=== PATIENT | female | born 1990 | race Caucasian/White ===

== ENCOUNTER 2019-02-14 00:56 | Emergency (ER) | payer OTHER, MEDICAID ==
[2019-02-14] MEDS: Promethazine 25 MG/ML SDV IM ONE (01:22)
--- NOTE | 2019-02-14 01:22 | EDM.PDOC ---
ED HPI GENERAL MEDICAL PROBLEM - General Chief Complaint: Abdominal Pain Stated Complaint: ADB PAIN Time Seen by Provider: 02/14/19 01:00 Source of Information: Reports: Patient History Limitations: Reports: No Limitations - History of Present Illness INITIAL COMMENTS - FREE TEXT/NARRATIVE: 28-year-old female with ongoing abdominal pain for the past month. It has been all over her abdomen. She was seen 2 weeks ago and had a pelvic ultrasound and was found to have a left ovarian cyst and she has been referred to see a manipulator operator in regard to this. She has had problems with ovarian cysts in the past and abdominal pain related to that. She tells me she pretty much has pain every day but it seems to be worse at times and it was worse today. The pain is basically all over her abdomen and it seems to be going through to her back. She rates pain as a 7/10. It is a sharp pain. She had nausea with vomiting 2 earlier in the evening. She attempted to take a Zofran but had vomiting with that. She continues with nausea at this time. No fevers. No chills. She reports she has had increased urination but no dysuria or hematuria noted. There are no other associated signs or symptoms. There are no other modifying factors. Onset: Other (As above with worsening today.) Duration: Constant, Getting Worse (Tonight) Location: Reports: Abdomen, Back, Other (Flanks) Quality: Reports: Sharp Severity: Moderate Improves with: Reports: Other (Can't really find a comfortable position.) Worsens with: Reports: Other (Worse with palpation) Context: Reports: Other (Not applicable) Associated Symptoms: Reports: Nausea/Vomiting, Other (She states she has been eating but somewhat less. 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 (See Below) Other WAREHOUSE OPERATOR History: Endometrioma of ovary Neurological History: Reports: Headaches, Chronic Dermatologic History: Reports: Eczema - Past Surgical History GI Surgical History: Reports: Appendectomy, Cholecystectomy, EGD Female Surgical History: Reports: Cystectomy (Ovarian cystectomy) Social & Family History - Tobacco Use Smoking Status *Q: Never Smoker Second Hand Smoke Exposure: No - Caffeine Use Caffeine Use: Reports: Soda - Alcohol Use Alcohol Use History: No - Recreational Drug Use Recreational Drug Use: No - Living Situation & Occupation Living situation: Reports: Occupation: 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[employer]) ED ROS GENERAL - Review of Systems Review Of Systems: See Below Constitutional: Reports: No Symptoms HEENT: Reports: No Symptoms Respiratory: Reports: No Symptoms Cardiovascular: Reports: No Symptoms Endocrine: Reports: No Symptoms GI/Abdominal: Reports: Abdominal Pain (Diffuse), Nausea, Vomiting (2 tonight), Other (Normal bowel movement tonight) : Reports: Flank Pain, Other (Increased urination). Denies: Discharge, Dysuria, Urgency Musculoskeletal: Reports: Back Pain Skin: Reports: No Symptoms Neurological: Reports: No Symptoms Psychiatric: Reports: No Symptoms Hematologic/Lymphatic: Reports: No Symptoms Immunologic: Reports: No Symptoms ED EXAM, GI/ABD - Physical Exam Exam: See Below Exam Limited By: No Limitations General Appearance: Alert, WD/WN, No Apparent Distress Eyes: Bilateral: Normal Appearance, EOMI Ears: Normal External Exam, Hearing Grossly Normal Nose: Normal Inspection, Normal Mucosa, No Blood Throat/Mouth: Normal Inspection, Normal Oropharynx, Normal Voice, No Airway Compromise Head: Atraumatic, Normocephalic Neck: Normal Inspection, Supple, Non-Tender, Full Range of Motion Respiratory/Chest: No Respiratory Distress, Lungs Clear, Normal Breath Sounds, No Accessory Muscle Use, Chest Non-Tender Cardiovascular: Normal Peripheral Pulses, Regular Rate, Rhythm, No JVD GI/Abdominal Exam: Normal Bowel Sounds, Soft, No Distention, No Mass, Tender ( Diffusely tender throughout. No rebound.) Back Exam: Normal Inspection, Full Range of Motion. No: CVA Tenderness (R), CVA Tenderness (L) Extremities: Normal Inspection, Normal Range of Motion, Non-Tender, Normal Capillary Refill, No Pedal Edema Neurological: Alert, Oriented, CN II-XII Intact, Normal Cognition, No Motor/ Sensory Deficits Lymphatic: No Adenopathy Course - Vital Signs Last Recorded V/S: Last Vital Signs Temp 37.0 C 02/14/19 02:24 Pulse 71 02/14/19 02:24 Resp 16 02/14/19 02:24 BP 122/65 02/14/19 02:24 Pulse Ox 98 02/14/19 02:24 - Orders/Labs/Meds Orders: Active Orders 24 hr Category Date Time Status Abdomen Pelvis wo Cont [CT] Stat Exams 02/14/19 01:44 Taken Labs: Laboratory Tests 02/14/19 02/14/19 02/14/19 Range/Units 01:16 01:16 01:28 WBC 7.2 (4.5-12.0) X10-3/uL RBC 4.79 (3.23-5.20) x10(6)uL Hgb 14.3 (11.5-15.5) g/dL Hct 42.2 (30.0-51.3) % MCV 88.1 (80-96) fL MCH 29.8 (27.7-33.6) pg MCHC 33.8 (32.2-35.4) g/dL RDW 12.9 (11.5-15.5) % Plt Count 217 (125-369) X10(3)uL MPV 9.4 (7.4-10.4) fL Neut % (Auto) 71.7 (46-82) % Lymph % (Auto) 20.6 (13-37) % [place] % (Auto) 4.8 (4-12) % Eos % (Auto) 1 (1.0-5.0) % Baso % (Auto) 2 (0-2) % Neut # (Auto) 5.2 (1.6-8.3) # Lymph # (Auto) 1.5 (0.6-5.0) # [place] # (Auto) 0.3 (0.0-1.3) # Eos # (Auto) 0.1 (0.0-0.8) # Baso # (Auto) 0.1 (0.0-0.2) # Sodium (135-145) mmol/L Potassium (3.5-5.3) mmol/L Chloride (100-110) mmol/L Carbon Dioxide (21-32) mmol/L BUN (7-18) mg/dL Creatinine (0.55-1.02) mg/dL Est Cr Clr Drug Dosing mL/min Estimated GFR (MDRD) (>60) BUN/Creatinine Ratio (9-20) Glucose (80-116) mg/dL Calcium (8.6-10.2) mg/dL Total Bilirubin (0.1-1.3) mg/dL AST (5-25) IU/L ALT (12-36) U/L Alkaline Phosphatase (56-112) IU/L Total Protein (6.0-8.0) g/dL Albumin (3.5-5.2) g/dL Globulin g/dL Albumin/Globulin Ratio Amylase (25-115) U/L Urine Color Yellow (YELLOW) Urine Appearance Clear (CLEAR) Urine pH 6.0 (5.0-6.5) Ur Specific [place] 1.015 (1.010-1.025) Urine Protein Negative (NEGATIVE) mg/dL Urine Glucose (UA) Normal (NORMAL) mg/dL Urine Ketones Negative (NEGATIVE) mg/dL Urine Occult Blood Negative (NEGATIVE) Urine Nitrite Negative (NEGATIVE) Urine Bilirubin Negative (NEGATIVE) Urine Urobilinogen Normal (NEGATIVE) mg/dL Ur Leukocyte Esterase Negative (NEGATIVE) Urine RBC 0-5 (0-5) Urine WBC 0-5 (0-5) Ur Squamous Epith Cells Few H (NS,R,O) Urine Bacteria Few H (NS) Urine HCG, Qual Negative (NEGATIVE) 02/14/19 Range/Units 01:28 WBC (4.5-12.0) X10-3/uL RBC (3.23-5.20) x10(6)uL Hgb (11.5-15.5) g/dL Hct (30.0-51.3) % MCV (80-96) fL MCH (27.7-33.6) pg MCHC (32.2-35.4) g/dL RDW (11.5-15.5) % Plt Count (125-369) X10(3)uL MPV (7.4-10.4) fL Neut % (Auto) (46-82) % Lymph % (Auto) (13-37) % [place] % (Auto) (4-12) % Eos % (Auto) (1.0-5.0) % Baso % (Auto) (0-2) % Neut # (Auto) (1.6-8.3) # Lymph # (Auto) (0.6-5.0) # [place] # (Auto) (0.0-1.3) # Eos # (Auto) (0.0-0.8) # Baso # (Auto) (0.0-0.2) # Sodium 143 (135-145) mmol/L Potassium 3.7 (3.5-5.3) mmol/L Chloride 108 (100-110) mmol/L Carbon Dioxide 23 (21-32) mmol/L BUN 5 L (7-18) mg/dL Creatinine 0.8 (0.55-1.02) mg/dL Est Cr Clr Drug Dosing 86.60 mL/min Estimated GFR (MDRD) > 60 (>60) BUN/Creatinine Ratio 6.3 L (9-20) Glucose 104 (80-116) mg/dL Calcium 9.0 (8.6-10.2) mg/dL Total Bilirubin 0.5 (0.1-1.3) mg/dL AST 13 (5-25) IU/L ALT 21 (12-36) U/L Alkaline Phosphatase 72 (56-112) IU/L Total Protein 7.2 (6.0-8.0) g/dL Albumin 4.2 (3.5-5.2) g/dL Globulin 3.0 g/dL Albumin/Globulin Ratio 1.4 Amylase 48 (25-115) U/L Urine Color (YELLOW) Urine Appearance (CLEAR) Urine pH (5.0-6.5) Ur Specific [place] (1.010-1.025) Urine Protein (NEGATIVE) mg/dL Urine Glucose (UA) (NORMAL) mg/dL Urine Ketones (NEGATIVE) mg/dL Urine Occult Blood (NEGATIVE) Urine Nitrite (NEGATIVE) Urine Bilirubin (NEGATIVE) Urine Urobilinogen (NEGATIVE) mg/dL Ur Leukocyte Esterase (NEGATIVE) Urine RBC (0-5) Urine WBC (0-5) Ur Squamous Epith Cells (NS,R,O) Urine Bacteria (NS) Urine HCG, Qual (NEGATIVE) Meds: Medications Discontinued Medications Generic Name Dose Route Start Last Admin Trade Name Freq PRN Reason Stop Dose Admin Promethazine HCl 25 mg 02/14/19 01:16 02/14/19 01:22 Phenergan IM 02/14/19 01:17 25 mg ONETIME ONE Administration - Radiology Interpretation Free Text/Narrative:: CT of abdomen and pelvis shows mild dilation of left kidney pelvis and left ureter per the [facility] radiologist - Re-Assessments/Exams Free Text/Narrative Re-Assessment/Exam: 02/14/19 02:30: Patient was sleeping. Her abdominal pain is decreased. Her nausea is essentially gone. Her blood tests are reassuringly normal. Urinalysis was normal. The CT scan of her abdomen and pelvis showed some signs of either left kidney infection or a passed left ureteral stone. Her exam, signs and symptoms and the urinalysis do not support either a passed kidney stone or a kidney infection. I discussed the findings of the CT and her lab tests with the patient. I am unsure why she is having the abdominal pain. She should continue her workup and follow through with her primary doctor. I will give her a prescription of Phenergan for nausea. Departure - Departure Time of Disposition: 02:36 Disposition: Home, Self-Care 01 Clinical Impression: Abdominal pain Qualifiers: Abdominal location: generalized Qualified Code(s): R10.84 - Generalized abdominal pain Vomiting Qualifiers: Vomiting type: unspecified Vomiting Intractability: non-intractable Nausea presence: with nausea Qualified Code(s): R11.2 - Nausea with vomiting, unspecified - Discharge Information Prescriptions: Promethazine [Phenergan] 25 mg PO Q6H PRN #16 tab PRN Reason: Nausea/Vomiting Instructions: Nausea and Vomiting, Adult, Abdominal Pain, Adult Forms: ED Department Discharge Additional Instructions: Your blood tests were reassuringly normal. Your urine test was normal. The CT scan of your abdomen and pelvis shows some mild dilation of your left ureter and kidney collecting system but your signs and symptoms do not support either a kidney infection or a recently passed kidney stone. As we discussed, I am unsure why you are having the abdominal pain. You should follow-up with your primary provider and keep your appointment with the manipulator operator. You may take Tylenol and ibuprofen as needed for pain. Medication as prescribed (Phenergan 25 mg). Back to the emergency department for high fever, unrelenting vomiting or any other concerning sign or symptom. - My Orders Last 24 Hours: My Active Orders 02/14/19 01:44 Abdomen Pelvis wo Cont [CT] Stat - Assessment/Plan Last 24 Hours: My Active Orders 02/14/19 01:44 Abdomen Pelvis wo Cont [CT] Stat
== END 2019-02-14 02:44 | disposition home or self-care (01) ==
LOC: FB.ED 00:56
DX: R10.84 Generalized abdominal pain (principal); R11.2 Nausea with vomiting, unspecified; Z88.5 Allergy status to narcotic agent
CPT/HCPCS: 36415; 74176; 80053; 81001; 81025; 82150; 85025; 96372; 99284; J2550

== ENCOUNTER 2019-04-02 00:19 | Emergency (ER) | payer MEDICAID, OTHER ==
[2019-04-02] MEDS ORDERED: Sodium Chloride 0.9% 10 ML Syringe FLUSH PRN (00:49)
[2019-04-02] MEDS ORDERED: Sodium Chloride 0.9% 1,000 ML IV ONE (00:50)
[2019-04-02] MEDS ORDERED: Promethazine 12.5 MG in Sodium Chloride 0.9% 50 ML IV ONE (00:51)
--- NOTE | 2019-04-02 00:56 | EDM.PDOC ---
ED HPI GENERAL MEDICAL PROBLEM - General Chief Complaint: SILVERER Problem Stated Complaint: ABDOMINAL PAIN Time Seen by Provider: 04/02/19 00:35 Source of Information: Reports: Patient History Limitations: Reports: No Limitations - History of Present Illness INITIAL COMMENTS - FREE TEXT/NARRATIVE: 28-year-old female who had onset of right flank and mid and lower quadrant abdominal pain last night (24+ hours ago). That pain has worsened with time and seems to radiate from her right abdomen to her back at times. The pain is somewhat colicky in nature. It does seem to be related to movement and palpation but also she finds it difficult to find a comfortable position. She's had no vomiting. She's had some mild nausea but she has been eating and drinking normally.no fevers. No chills. No vaginal discharge. No dysuria. No hematuria.She reports unsure if possibility of or not. She has had pelvic pain in the past related to ovarian cyst and she had an endometrioma in the left pelvic area in the past. This pain seems to be somewhat tired and somewhat different the ovarian pain. She currently rates her pain as an 8/10. Worse with movement and with palpation. Nothing really seems to make it better. There are no other associated signs or symptoms. There are no other modifying factors. Onset: Other (yesterday evening) Duration: Getting Worse Location: Reports: Abdomen (right flank and mid and lower quadrant abdominal pain) Quality: Reports: Ache, Sharp, Throbbing Severity: Moderate (to severe) Improves with: Reports: None Worsens with: Reports: Other (palpation), Movement Context: Reports: Other (no known inciting event) Associated Symptoms: Reports: Nausea/Vomiting (mild nausea) Treatments SITE ACQUISITION MANAGER: Reports: Other (see below) (nothing) left lower abd Pain Score (Numeric/FACES): 8 - Related Data Allergies Allergy/AdvReac Type Severity Reaction Status Date / Time codeine Allergy Shortness Verified 04/02/19 00:52 of Breath hydrocodone Allergy Anaphylactic Verified 04/02/19 00:52 Shock tramadol Allergy Nausea and Verified 04/02/19 00:52 Vomiting Home Meds: Home Meds Morphine 15 mg PO Q4H PRN #12 tab 04/02/19 [Rx] Ondansetron [Zofran ODT] 4 mg PO Q6H PRN #8 tab.dis 04/02/19 [Rx] Past Medical History Cardiovascular History: Reports: Blood Clots/VTE/DVT (right upper extremity DVT , non-provoked, not chronically anticoagulated of present.), Heart Murmur SILVERER History: Reports: Other (See Below) 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 SILVERER History: Endometrioma of ovary Neurological History: Reports: Headaches, Chronic Dermatologic History: Reports: Eczema - Past Surgical History GI Surgical History: Reports: Appendectomy, Cholecystectomy, EGD Female Surgical History: Reports: Cystectomy (Ovarian cystectomy) Social & Family History - Tobacco Use Smoking Status *Q: Unknown Ever Smoked (nonsmoker) - Caffeine Use Caffeine Use: Reports: Soda - Alcohol Use Alcohol Use History: Yes Alcohol Use Frequency: Rarely - Living Situation & Occupation Living situation: Reports: Occupation: 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 Denies: Diarrhea, Vomiting : Reports: No Symptoms Musculoskeletal: Reports: Back Pain (some pain radiates into her right lower back) Skin: Reports: No Symptoms Neurological: Reports: No Symptoms Hematologic/Lymphatic: Reports: No Symptoms (she is not chronically anticoagulated of present.) ED EXAM, GI/ABD - Physical Exam Exam: See Below Exam Limited By: No Limitations General Appearance: Alert, WD/WN, Moderate Distress Eyes: Bilateral: Normal Appearance, EOMI Ears: Normal External Exam Nose: Normal Inspection, Normal Mucosa, No Blood Throat/Mouth: Normal Inspection, Normal Oropharynx, Normal Voice, No Airway Compromise Head: Atraumatic, Normocephalic Neck: Normal Inspection, Supple, Non-Tender, Full Range of Motion Respiratory/Chest: No Respiratory Distress, Lungs Clear, Normal Breath Sounds, No Accessory Muscle Use, Chest Non-Tender Cardiovascular: Normal Peripheral Pulses, Regular Rate, Rhythm, No JVD GI/Abdominal Exam: Normal Bowel Sounds, Soft, No Mass, Tender (in right mid and lower abdomen as well as right flank.) Back Exam: Normal Inspection. No: CVA Tenderness (R), CVA Tenderness (L) Extremities: Normal Inspection, Normal Range of Motion, Non-Tender, No Pedal Edema, Normal Capillary Refill, Other (radial and dorsalis pedis pulses are present and symmetric bilaterally.) Skin Exam: Warm, Dry, Intact, Normal Color, No Rash Lymphatic: No Adenopathy Course - Vital Signs Last Recorded V/S: Last Vital Signs Temp 36.4 C 04/02/19 00:44 Pulse 85 04/02/19 00:44 Resp 18 04/02/19 00:44 BP 113/74 04/02/19 00:44 Pulse Ox 100 04/02/19 00:44 - Orders/Labs/Meds Orders: Active Orders 24 hr Category Date Time Status Abdomen Pelvis wo Cont [CT] Stat Exams 04/02/19 01:18 Taken Sodium Chloride 0.9% [Saline Flush] Med 04/02/19 00:49 Active 10 ml FLUSH ASDIRECTED PRN Peripheral IV Insertion Adult [OM.PC] Routine Oth 04/02/19 00:49 Ordered Medication Orders Sodium Chloride (Saline Flush) 10 ml FLUSH ASDIRECTED PRN PRN Reason: Keep Vein Open Last Admin: 04/02/19 01:00 Dose: 10 ml Labs: Laboratory Tests 04/02/19 04/02/19 04/02/19 Range/Units 00:53 00:53 00:55 WBC 8.6 (4.5-12.0) X10-3/uL RBC 4.67 (3.23-5.20) x10(6)uL Hgb 14.2 (11.5-15.5) g/dL Hct 41.5 (30.0-51.3) % MCV 88.9 (80-96) fL MCH 30.3 (27.7-33.6) pg MCHC 34.1 (32.2-35.4) g/dL RDW 12.2 (11.5-15.5) % Plt Count 244 (125-369) X10(3)uL MPV 9.4 (7.4-10.4) fL Neut % (Auto) 55.8 (46-82) % Lymph % (Auto) 34.0 (13-37) % [place] % (Auto) 6.0 (4-12) % Eos % (Auto) 3 (1.0-5.0) % Baso % (Auto) 1 (0-2) % Neut # (Auto) 4.8 (1.6-8.3) # Lymph # (Auto) 2.9 (0.6-5.0) # [place] # (Auto) 0.5 (0.0-1.3) # Eos # (Auto) 0.3 (0.0-0.8) # Baso # (Auto) 0.1 (0.0-0.2) # Sodium (135-145) mmol/L Potassium (3.5-5.3) mmol/L Chloride (100-110) mmol/L Carbon Dioxide (21-32) mmol/L BUN (7-18) mg/dL Creatinine (0.55-1.02) mg/dL Est Cr Clr Drug Dosing mL/min Estimated GFR (MDRD) (>60) BUN/Creatinine Ratio (9-20) Glucose (80-116) mg/dL Calcium (8.6-10.2) mg/dL Total Bilirubin (0.1-1.3) mg/dL AST (5-25) IU/L ALT (12-36) U/L Alkaline Phosphatase (56-112) IU/L C-Reactive Protein (0.5-0.9) mg/dL Total Protein (6.0-8.0) g/dL Albumin (3.5-5.2) g/dL Globulin g/dL Albumin/Globulin Ratio Amylase (25-115) U/L Urine Color Yellow (YELLOW) Urine Appearance Slightly cloudy (CLEAR) Urine pH 7.0 H (5.0-6.5) Ur Specific [place] 1.000 L (1.010-1.025) Urine Protein Negative (NEGATIVE) mg/dL Urine Glucose (UA) Normal (NORMAL) mg/dL Urine Ketones Negative (NEGATIVE) mg/dL Urine Occult Blood Large H (NEGATIVE) Urine Nitrite Negative (NEGATIVE) Urine Bilirubin Negative (NEGATIVE) Urine Urobilinogen Normal (NEGATIVE) mg/dL Ur Leukocyte Esterase Small H (NEGATIVE) Urine RBC 5-10 H (0-5) Urine WBC 0-5 (0-5) Ur Squamous Epith Cells Moderate H (NS,R,O) Urine Bacteria Few H (NS) Urine HCG, Qual Negative (NEGATIVE) 04/02/19 04/02/19 Range/Units 00:55 00:55 WBC (4.5-12.0) X10-3/uL RBC (3.23-5.20) x10(6)uL Hgb (11.5-15.5) g/dL Hct (30.0-51.3) % MCV (80-96) fL MCH (27.7-33.6) pg MCHC (32.2-35.4) g/dL RDW (11.5-15.5) % Plt Count (125-369) X10(3)uL MPV (7.4-10.4) fL Neut % (Auto) (46-82) % Lymph % (Auto) (13-37) % [place] % (Auto) (4-12) % Eos % (Auto) (1.0-5.0) % Baso % (Auto) (0-2) % Neut # (Auto) (1.6-8.3) # Lymph # (Auto) (0.6-5.0) # [place] # (Auto) (0.0-1.3) # Eos # (Auto) (0.0-0.8) # Baso # (Auto) (0.0-0.2) # Sodium 145 (135-145) mmol/L Potassium 3.7 (3.5-5.3) mmol/L Chloride 105 (100-110) mmol/L Carbon Dioxide 30 (21-32) mmol/L BUN 9 (7-18) mg/dL Creatinine 0.8 (0.55-1.02) mg/dL Est Cr Clr Drug Dosing 86.60 mL/min Estimated GFR (MDRD) > 60 (>60) BUN/Creatinine Ratio 11.3 (9-20) Glucose 98 (80-116) mg/dL Calcium 8.9 (8.6-10.2) mg/dL Total Bilirubin 0.5 (0.1-1.3) mg/dL AST 16 D (5-25) IU/L ALT 27 D (12-36) U/L Alkaline Phosphatase 84 (56-112) IU/L C-Reactive Protein < 0.2 L (0.5-0.9) mg/dL Total Protein 7.4 (6.0-8.0) g/dL Albumin 4.2 (3.5-5.2) g/dL Globulin 3.2 g/dL Albumin/Globulin Ratio 1.3 Amylase 49 (25-115) U/L Urine Color (YELLOW) Urine Appearance (CLEAR) Urine pH (5.0-6.5) Ur Specific [place] (1.010-1.025) Urine Protein (NEGATIVE) mg/dL Urine Glucose (UA) (NORMAL) mg/dL Urine Ketones (NEGATIVE) mg/dL Urine Occult Blood (NEGATIVE) Urine Nitrite (NEGATIVE) Urine Bilirubin (NEGATIVE) Urine Urobilinogen (NEGATIVE) mg/dL Ur Leukocyte Esterase (NEGATIVE) Urine RBC (0-5) Urine WBC (0-5) Ur Squamous Epith Cells (NS,R,O) Urine Bacteria (NS) Urine HCG, Qual (NEGATIVE) Meds: Medications Generic Name Dose Route Start Last Admin Trade Name Freq PRN Reason Stop Dose Admin Sodium Chloride 10 ml 04/02/19 00:49 04/02/19 01:00 Saline Flush FLUSH 10 ml ASDIRECTED PRN Administration Keep Vein Open Discontinued Medications Generic Name Dose Route Start Last Admin Trade Name Freq PRN Reason Stop Dose Admin Promethazine HCl 12.5 mg/ 50.5 mls @ 200 mls/hr 04/02/19 00:51 04/02/19 01:11 Sodium Chloride IV 04/02/19 01:06 200 mls/hr ONETIME ONE Administration Sodium Chloride 1,000 mls @ 999 mls/hr 04/02/19 00:50 04/02/19 01:00 Normal Saline IV 04/02/19 01:50 999 mls/hr .BOLUS ONE Administration Ketorolac Tromethamine 30 mg 04/02/19 01:18 04/02/19 01:25 Toradol IVPUSH 04/02/19 01:19 30 mg ONETIME ONE Administration Morphine Sulfate 4 mg 04/02/19 02:31 Morphine IVPUSH 04/02/19 02:32 ONETIME ONE Ondansetron HCl 4 mg 04/02/19 02:31 Zofran IVPUSH 04/02/19 02:32 ONETIME ONE - Radiology Interpretation Free Text/Narrative:: CT scan of abdomen and pelvis showed no evidence of ureteral stone and no abnormality to explain the patient's symptoms of flank and abdominal pain per the [facility] radiologist. - Re-Assessments/Exams Free Text/Narrative Re-Assessment/Exam: 04/02/19 01:20: Her blood tests were reassuringly normal. She has was negative. She did have blood in her urine with no clear-cut evidence of infection. I will send her for a CT of her abdomen and pelvis IV contrast to rule out (or in) a ureteral stone. The patient will be given Toradol 30 mg IV. 04/02/19 02:32: CT scan of her abdomen and pelvis was essentially negative. It did not show anything that would explain her right flank and abdominal pain. Her pain is now 5-6/10. I will give her a dose of morphine (she has tolerated this in the past without problems) and Zofran and plan on discharging the patient with her taking ibuprofen 600 mg 4 times a day for the next few days and then as needed. And I will also give her a prescription for morphine (oral) that she can take for more severe pain. Departure - Departure Time of Disposition: 02:45 Disposition: Home, Self-Care 01 Condition: Good Clinical Impression: Acute abdominal pain in right flank, Abdominal pain of unknown etiology - Discharge Information Prescriptions: Morphine 15 mg PO Q4H PRN #12 tab PRN Reason: moderate to severe pain Ondansetron [Zofran ODT] 4 mg PO Q6H PRN #8 tab.dis PRN Reason: Nausea/Vomiting Instructions: Abdominal Pain, Adult, Pelvic Pain, Female Referrals: Francie Lyn, CROCHETER [Primary Care Provider] - Forms: ED Department Discharge Additional Instructions: Your blood tests were reassuringly normal. Your urine test showed some blood but no evidence of infection. Your test was negative. Take ibuprofen 600 mg by mouth 4 times a day next few days and then as needed for pain. You may also take Tylenol 1000 mg by mouth every 6 hours as needed for pain. Medication as prescribed (morphine 15 mg tablets, Zofran 4 mg ODT). Follow-up with your primary doctor for persisting problems. Back to the emergency department for marked increase in pain, fever, unrelenting vomiting or any other concerning sign or symptom. - My Orders Last 24 Hours: My Active Orders 04/02/19 00:49 Sodium Chloride 0.9% [Saline Flush] 10 ml FLUSH ASDIRECTED PRN Peripheral IV Insertion Adult [OM.PC] Routine 04/02/19 01:18 Abdomen Pelvis wo Cont [CT] Stat - Assessment/Plan Last 24 Hours: My Active Orders 04/02/19 00:49 Sodium Chloride 0.9% [Saline Flush] 10 ml FLUSH ASDIRECTED PRN Peripheral IV Insertion Adult [OM.PC] Routine 04/02/19 01:18 Abdomen Pelvis wo Cont [CT] Stat
[2019-04-02] MEDS ORDERED: Ketorolac 30 MG/ML SDV IVPUSH ONE (01:18)
[2019-04-02] MEDS ORDERED: Morphine 4 MG/ML Syringe IVPUSH ONE (02:31)
[2019-04-02] MEDS ORDERED: Ondansetron 4 MG/2 ML SDV IVPUSH ONE (02:31)
== END 2019-04-02 03:10 | disposition home or self-care (01) ==
LOC: FB.ED 00:19
DX: R10.31 Right lower quadrant pain (principal); Z88.5 Allergy status to narcotic agent; Z86.718 Personal history of other venous thrombosis and embolism; Z90.49 Acquired absence of other specified parts of digestive tract
CPT/HCPCS: 36415; 74176; 80053; 81001; 81025; 82150; 85025; 86140; 96361; 96374; 96375; 99284; J1885; J2270; J2405; J2550; J7030; J7050

== ENCOUNTER 2019-06-28 20:41 | Emergency (ER) | payer MEDICAID, OTHER ==
[2019-06-28] MEDS ORDERED: Ketorolac 60 MG/2 ML SDV IM ONE (20:59)
[2019-06-28] MEDS ORDERED: hydrOXYzine HCl 50 MG/ML SDV IM ONE (20:59)
--- NOTE | 2019-06-28 21:02 | EDM.PDOC ---
ED HPI GENERAL MEDICAL PROBLEM - General Chief Complaint: Headache Stated Complaint: MIGRAINE Time Seen by Provider: 06/28/19 21:00 Source of Information: Reports: Patient History Limitations: Reports: No Limitations - History of Present Illness INITIAL COMMENTS - FREE TEXT/NARRATIVE: Juanita complains of a headache for 6 hours. Moderate to severe. It's global associated with the visual disturbance light sensitivity and noise sensitivity. In addition it causes some nausea. No fever throat or neck stiffness. She has a history of migraines last one being in April. She took Tylenol with no relief. 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: Reports: Other (See Below) Other OPTIC FIBRE DRAWER History: Endometrioma of ovary Neurological History: Reports: Headaches, Chronic Dermatologic History: Reports: Eczema - Past Surgical History GI Surgical History: Reports: Appendectomy, Cholecystectomy, EGD Female Surgical History: Reports: Cystectomy Social & Family History - Tobacco Use Smoking Status *Q: Never Smoker - Caffeine Use Caffeine Use: Reports: Coffee, Soda - Recreational Drug Use Recreational Drug Use: No - Living Situation & Occupation Living situation: Reports: Occupation: 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 - Physical Exam Exam: See Below Exam Limited By: No Limitations General Appearance: Alert, WD/WN, No Apparent Distress Ears: Normal External Exam Nose: Normal Inspection Throat/Mouth: Normal Inspection Head Exam: Atraumatic, Normocephalic Neck: Normal Inspection Respiratory/Chest: No Respiratory Distress Cardiovascular: Normal Peripheral Pulses Psychiatric: Normal Affect Skin Exam: Warm Course - Vital Signs Last Recorded V/S: Last Vital Signs Temp 98.1 F 06/28/19 20:50 Pulse 69 06/28/19 20:50 Resp 18 06/28/19 20:50 BP 105/75 06/28/19 20:50 Pulse Ox 99 06/28/19 20:50 - Orders/Labs/Meds Orders: Active Orders 24 hr Category Date Time Status Ketorolac [Toradol] Med 06/28/19 20:59 Once 60 mg IM ONETIME ONE hydrOXYzine HCl [Vistaril] Med 06/28/19 20:59 Once 100 mg IM ONETIME ONE Meds: Medications Discontinued Medications Generic Name Dose Route Start Last Admin Trade Name Chavez PRN Reason Stop Dose Admin Hydroxyzine HCl 100 mg 06/28/19 20:59 Vistaril IM 06/28/19 21:00 ONETIME ONE Ketorolac Tromethamine 60 mg 06/28/19 20:59 Toradol IM 06/28/19 21:00 ONETIME ONE Departure - Departure Time of Disposition: 21:01 Disposition: Home, Self-Care 01 Condition: Good Clinical Impression: Migraine - Discharge Information Referrals: Francie Lyn, MODEL DRESSER [Primary Care Provider] - - Problem List & Annotations (1) Migraine SNOMED Code(s): 68695082 Code(s): G43.909 - MIGRAINE, UNSP, NOT INTRACTABLE, WITHOUT STATUS MIGRAINOSUS Status: Acute - Problem List Review Problem List Initiated/Reviewed/Updated: Yes - My Orders Last 24 Hours: My Active Orders 06/28/19 20:59 Ketorolac [Toradol] 60 mg IM ONETIME ONE hydrOXYzine HCl [Vistaril] 100 mg IM ONETIME ONE - Assessment/Plan Last 24 Hours: My Active Orders 06/28/19 20:59 Ketorolac [Toradol] 60 mg IM ONETIME ONE hydrOXYzine HCl [Vistaril] 100 mg IM ONETIME ONE Assessment:: Toradol 60 mg IM. Vistaril 100 mg IM
== END 2019-06-28 21:30 | disposition home or self-care (01) ==
LOC: FB.ED 20:41
DX: G43.909 Migraine, unspecified, not intractable, without status migrainosus (principal); Z88.5 Allergy status to narcotic agent; Z90.49 Acquired absence of other specified parts of digestive tract
CPT/HCPCS: 96372; 99283; J1885; J3410

== ENCOUNTER 2019-09-29 17:44 | Emergency (ER) | payer MEDICAID ==
[2019-09-29] MEDS ORDERED: Ondansetron 4 MG Tab.DIS PO ONE (17:45)
--- NOTE | 2019-09-29 17:54 | EDM.PDOC ---
ED HPI GENERAL MEDICAL PROBLEM - General Chief Complaint: Gastrointestinal Problem Stated Complaint: VOMITING AND DIARRHEA Time Seen by Provider: 09/29/19 17:54 Source of Information: Reports: Patient History Limitations: Reports: No Limitations - History of Present Illness INITIAL COMMENTS - FREE TEXT/NARRATIVE: 29-year-old female with onset of vomiting and diarrhea at midnight 09/29/2019. She reports she's had vomiting 12 and diarrhea 12-15 times. She may have had some streaks of bright red blood in her emesis on the last few episodes of emesis. She has been trying to take by mouth but has had vomiting times she tries. She does have some mild diffuse abdominal discomfort which began after the vomiting and diarrhea. At approximately I p.m. today she began to have some pain in her left chest that has progressively worsened with time. It is a sharp pain that is worse with palpation and deep breath and it is also worse with movement. She has felt somewhat weak and dizzy with the vomiting. No fevers or chills. The pain in her chest is completely reproducible with palpation and with deep breath. She rates pain as a 6/10. It is sharp and nonradiating. There are no other associated signs or symptoms. There are no other modifying factors. Onset: Today (At midnight with vomiting and diarrhea), Other (5 PM tonight with left-sided chest pain) Duration: Constant (Vomiting and diarrhea), Getting Worse (Sharp pain in her left chest) Location: Reports: Chest Quality: Reports: Sharp Severity: Moderate (to severe) Improves with: Reports: None Worsens with: Reports: Breathing, Other (Palpation), Movement Context: Reports: Other (As above) Associated Symptoms: Reports: Chest Pain, Nausea/Vomiting, Weakness Treatments STAFF READINESS OFFICER: Reports: Other Medication(s) (Imodium) Left Upper Chest Pain Score (Numeric/FACES): 6 - Related Data Allergies Allergy/AdvReac Type Severity Reaction Status Date / Time codeine Allergy Shortness Verified 09/29/19 17:48 of Breath hydrocodone Allergy Anaphylactic Verified 09/29/19 17:48 Shock tramadol Allergy Nausea and Verified 09/29/19 17:48 Vomiting Home Meds: Home Meds Ondansetron [Zofran ODT] 4 mg PO Q6H PRN #4 tab.dis 09/29/19 [Rx] Past Medical History Cardiovascular History: Reports: Blood Clots/VTE/DVT (In right upper extremity in the past. 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 History: Endometrioma of ovary Neurological History: Reports: Headaches, Chronic Dermatologic History: Reports: Eczema - Past Surgical History GI Surgical History: Reports: Appendectomy, Cholecystectomy, EGD Female Surgical History: Reports: Cystectomy (Ovarian) Social & Family History - Tobacco Use Smoking Status *Q: Unknown Ever Smoked (Nonsmoker) - Caffeine Use Caffeine Use: Reports: Coffee, Soda - Alcohol Use Alcohol Use History: No - Living Situation & Occupation Living situation: Reports: Occupation: 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[employer]; 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) ED ROS GENERAL - Review of Systems Review Of Systems: See Below Constitutional: Reports: Malaise, Weakness HEENT: Reports: Other (Dry mouth) Respiratory: Reports: Pleuritic Chest Pain (Left-sided) Cardiovascular: Reports: Chest Pain (Left-sided) GI/Abdominal: Reports: Diarrhea, Vomiting : Reports: Other (Decreased urine output) Musculoskeletal: Reports: No Symptoms Skin: Reports: No Symptoms Neurological: Reports: No Symptoms Hematologic/Lymphatic: Reports: No Symptoms Immunologic: Reports: No Symptoms ED EXAM, GI/ABD - Physical Exam Exam: See Below Exam Limited By: No Limitations General Appearance: Alert, WD/WN, Moderate Distress (Secondary to pain. No respiratory distress.) Eyes: Bilateral: Normal Appearance, EOMI Ears: Normal External Exam, Hearing Grossly Normal Nose: Normal Inspection, Normal Mucosa, No Blood Throat/Mouth: Normal Voice, No Airway Compromise, Other (Dry mucous membranes) Head: Atraumatic, Normocephalic Neck: Normal Inspection, Supple, Non-Tender, Full Range of Motion Respiratory/Chest: No Respiratory Distress, Lungs Clear, Normal Breath Sounds, No Accessory Muscle Use, Other (Tender to palpation over left chest) Cardiovascular: Normal Peripheral Pulses, Regular Rate, Rhythm, No Murmur GI/Abdominal Exam: Normal Bowel Sounds, Soft, Non-Tender, No Mass Back Exam: Normal Inspection, Full Range of Motion Extremities: Normal Inspection, Normal Range of Motion, Non-Tender, No Pedal Edema, Normal Capillary Refill, Other (Radial and dorsalis pedis pulses are present and symmetric bilaterally.) Neurological: Alert, Oriented, CN II-XII Intact, Normal Cognition, No Motor/ Sensory Deficits Skin Exam: Warm, Dry, Intact, Normal Color, No Rash EKG INTERPRETATION EKG Date: 09/29/19 Time: 18:18 Rhythm: NSR Rate (Beats/Min): 96 [place]: Normal P-Wave: Present QRS: Normal ST-T: Other (Nonspecific ST-T changes) QT: Normal Comparison: NA - No Prior EKG Course - Vital Signs Last Recorded V/S: Last Vital Signs Temp 36.6 C 09/29/19 21:55 Pulse 73 09/29/19 21:55 Resp 16 09/29/19 21:55 BP 101/54 L 09/29/19 21:55 Pulse Ox 100 09/29/19 21:55 - Orders/Labs/Meds Orders: Active Orders 24 hr Category Date Time Status EKG Documentation Completion [RC] ASDIRECTED Care 09/29/19 18:07 Active Ang Chest [CT] Stat Exams 09/29/19 19:09 Taken HEPATITIS PANEL (4) Urgent Lab 09/29/19 17:00 Received Preg Urine [HCG QUALITATIVE,URINE] [URCHEM] Stat Lab 09/29/19 18:08 Ordered Peripheral IV Insertion Adult [OM.PC] Routine Oth 09/29/19 18:07 Ordered EKG 12 Lead [EK] Routine Ther 09/29/19 18:07 Ordered Labs: Laboratory Tests 09/29/19 09/29/19 09/29/19 Range/Units 18:08 18:20 18:20 WBC 7.8 (4.5-12.0) X10-3/uL RBC 4.97 (3.23-5.20) x10(6)uL Hgb 15.0 (11.5-15.5) g/dL Hct 43.9 (30.0-51.3) % MCV 88.3 (80-96) fL MCH 30.2 (27.7-33.6) pg MCHC 34.2 (32.2-35.4) g/dL RDW 12.3 (11.5-15.5) % Plt Count 201 (125-369) X10(3)uL MPV 9.0 (7.4-10.4) fL Neut % (Auto) 82.4 H (46-82) % Lymph % (Auto) 8.2 L (13-37) % [place] % (Auto) 6.4 (4-12) % Eos % (Auto) 1 (1.0-5.0) % Baso % (Auto) 2 (0-2) % Neut # (Auto) 6.4 (1.6-8.3) # Lymph # (Auto) 0.6 (0.6-5.0) # [place] # (Auto) 0.5 (0.0-1.3) # Eos # (Auto) 0.1 (0.0-0.8) # Baso # (Auto) 0.2 (0.0-0.2) # D-Dimer, Quantitative (0.0-0.59) mg/LFEU Sodium 139 (135-145) mmol/L Potassium 3.5 (3.5-5.3) mmol/L Chloride 104 (100-110) mmol/L Carbon Dioxide 25 (21-32) mmol/L BUN 9 (7-18) mg/dL Creatinine 0.8 (0.55-1.02) mg/dL Est Cr Clr Drug Dosing 85.83 mL/min Estimated GFR (MDRD) > 60 (>60) BUN/Creatinine Ratio 11.3 (9-20) Glucose 102 (80-116) mg/dL Calcium 8.3 L (8.6-10.2) mg/dL Magnesium 1.7 L (1.8-2.5) mg/dL Total Bilirubin 1.3 (0.1-1.3) mg/dL AST 65 H D (5-25) IU/L ALT 58 H D (12-36) U/L Alkaline Phosphatase 82 (56-112) IU/L Total Protein 7.1 (6.0-8.0) g/dL Albumin 4.0 (3.5-5.2) g/dL Globulin 3.1 g/dL Albumin/Globulin Ratio 1.3 Urine HCG, Qual Negative (NEGATIVE) 09/29/19 Range/Units 18:20 WBC (4.5-12.0) X10-3/uL RBC (3.23-5.20) x10(6)uL Hgb (11.5-15.5) g/dL Hct (30.0-51.3) % MCV (80-96) fL MCH (27.7-33.6) pg MCHC (32.2-35.4) g/dL RDW (11.5-15.5) % Plt Count (125-369) X10(3)uL MPV (7.4-10.4) fL Neut % (Auto) (46-82) % Lymph % (Auto) (13-37) % [place] % (Auto) (4-12) % Eos % (Auto) (1.0-5.0) % Baso % (Auto) (0-2) % Neut # (Auto) (1.6-8.3) # Lymph # (Auto) (0.6-5.0) # [place] # (Auto) (0.0-1.3) # Eos # (Auto) (0.0-0.8) # Baso # (Auto) (0.0-0.2) # D-Dimer, Quantitative 0.62 H (0.0-0.59) mg/LFEU Sodium (135-145) mmol/L Potassium (3.5-5.3) mmol/L Chloride (100-110) mmol/L Carbon Dioxide (21-32) mmol/L BUN (7-18) mg/dL Creatinine (0.55-1.02) mg/dL Est Cr Clr Drug Dosing mL/min Estimated GFR (MDRD) (>60) BUN/Creatinine Ratio (9-20) Glucose (80-116) mg/dL Calcium (8.6-10.2) mg/dL Magnesium (1.8-2.5) mg/dL Total Bilirubin (0.1-1.3) mg/dL AST (5-25) IU/L ALT (12-36) U/L Alkaline Phosphatase (56-112) IU/L Total Protein (6.0-8.0) g/dL Albumin (3.5-5.2) g/dL Globulin g/dL Albumin/Globulin Ratio Urine HCG, Qual (NEGATIVE) Meds: Medications Discontinued Medications Generic Name Dose Route Start Last Admin Trade Name Freq PRN Reason Stop Dose Admin Promethazine HCl 25 mg/ Sodium 51 mls @ 200 mls/hr 09/29/19 18:09 09/29/19 18 :23 Chloride IV 09/29/19 18:24 200 mls/hr ONETIME ONE Administration Sodium Chloride 1,000 mls @ 999 mls/hr 09/29/19 18:08 09/29/19 18:27 Normal Saline IV 09/29/19 19:08 999 mls/hr .BOLUS ONE Administration Sodium Chloride 1,000 mls @ 999 mls/hr 09/29/19 20:43 09/29/19 20:52 Normal Saline IV 09/29/19 21:43 999 mls/hr .BOLUS ONE Administration Iopamidol 100 ml 09/29/19 19:10 09/29/19 19:22 Isovue-370 (76%) IV 09/29/19 19:11 100 ml . DIRECTED ONE Administration Ketorolac Tromethamine 30 mg 09/29/19 20:42 09/29/19 20:51 Toradol IVPUSH 09/29/19 20:43 30 mg ONETIME ONE Administration Morphine Sulfate 4 mg 09/29/19 18:08 09/29/19 18:23 Morphine IVPUSH 09/29/19 18:09 4 mg ONETIME ONE Administration Ondansetron HCl 4 mg 09/29/19 20:42 09/29/19 20:52 Zofran IVPUSH 09/29/19 20:43 4 mg ONETIME ONE Administration Sodium Chloride 10 ml 09/29/19 18:07 09/29/19 21:12 Saline Flush FLUSH 10 ml ASDIRECTED PRN Administration Keep Vein Open - Radiology Interpretation Free Text/Narrative:: CTA of the chest shows no evidence of pulmonary embolus or any other acute lung problem. She did have evidence of cysts in both kidneys and the radiologist recommended nonemergent sonographic follow-up. - Re-Assessments/Exams Free Text/Narrative Re-Assessment/Exam: 09/29/19 20:15: Patient's pain is somewhat improved and her nausea is less. She has received 1 L of normal saline as a bolus, Phenergan 25 mg IV and morphine [address] scan of her chest ruled out pulmonary embolus. The pain in her chest appears to be musculoskeletal in nature. Her primary problem appears to be dehydration related to vomiting and diarrhea caused by a viral illness. The plan will be to give her another liter of normal saline IV as a bolus. The patient Toradol 30 mg IV and Zofran 4 mg IV. 09/29/19 21:30: The second liter of normal saline is almost infused. She has received the Toradol and Zofran and her pain is much improved and her nausea has resolved. She has had no further emesis in the emergency department and she has had no loose stools. Her blood tests are reassuringly normal except for AST and ALT elevation. I will send testing for hepatitis panel. She is to follow-up with her doctor in regard to these renal cysts and the need for outpatient ultrasound follow-up and also for follow-up of the hepatitis panel that I am ordering today. Departure - Departure Time of Disposition: 21:55 Disposition: Home, Self-Care 01 Condition: Good (Improved) Clinical Impression: Vomiting and diarrhea, Dehydration, moderate, Chest wall pain, Renal cysts, acquired, bilateral, Elevated LFTs - Discharge Information Prescriptions: Ondansetron [Zofran ODT] 4 mg PO Q6H PRN #4 tab.dis PRN Reason: Nausea/Vomiting Instructions: Chest Wall Pain, [id number], Nausea and Vomiting, Adult, Easy- to-Read, Rehydration, Adult, Diarrhea, Adult, [id number] Referrals: Francie Lyn COMMUNITY LIFE DIRECTOR [Primary Care Provider] - Forms: ED Department Discharge Additional Instructions: Your blood tests were normal except for a slightly elevated test to screen for blood clots (however the CAT scan of your chest showed no evidence of blood clots and therefore they were ruled out) and slightly elevated liver function tests. You do appear to have some type of viral illness causing your vomiting and your diarrhea and the elevation in your liver tests may be due to the infection caused by this virus. I did send blood testing for other viruses that can cause elevation in your liver. These will not be back until first of the year. The CT scan also showed evidence of cysts on both of your kidneys and these need to be rechecked by ultrasound through your primary doctor. The pain in your left chest appears to be in the muscles and cartilage of your chest and does not appear to represent anything serious. You did appear to be dehydrated related to the vomiting and diarrhea. This was corrected with the IV fluids. You should rest. You should drink small amounts of fluids frequently and increase your fluid intake as tolerated. You may take Tylenol and ibuprofen as needed for your pain. Medication as prescribed (Zofran 4 mg ODT). Follow-up with your primary doctor this coming week. Back to the emergency department for unrelenting vomiting, inability to take liquids or any other concerning sign or symptom. Sepsis Event Note - Focused Exam Vital Signs: Vital Signs Temp Pulse Resp BP Pulse Ox 09/29/19 21:55 36.6 C 73 16 101/54 L 100 09/29/19 19:05 36.9 C 104 H 18 110/61 99 Date Exam was Performed: 09/29/19 Time Exam was Performed: 22:16 - My Orders Last 24 Hours: My Active Orders 09/29/19 17:00 HEPATITIS PANEL (4) Urgent 09/29/19 18:07 EKG Documentation Completion [RC] ASDIRECTED Peripheral IV Insertion Adult [OM.PC] Routine EKG 12 Lead [EK] Routine 09/29/19 18:08 Preg Urine [HCG QUALITATIVE,URINE] [URCHEM] Stat 09/29/19 19:09 Ang Chest [CT] Stat - Assessment/Plan Last 24 Hours: My Active Orders 09/29/19 17:00 HEPATITIS PANEL (4) Urgent 09/29/19 18:07 EKG Documentation Completion [RC] ASDIRECTED Peripheral IV Insertion Adult [OM.PC] Routine EKG 12 Lead [EK] Routine 09/29/19 18:08 Preg Urine [HCG QUALITATIVE,URINE] [URCHEM] Stat 09/29/19 19:09 Ang Chest [CT] Stat
[2019-09-29] MEDS ORDERED: Sodium Chloride 0.9% 10 ML Syringe FLUSH PRN (18:07)
[2019-09-29] MEDS ORDERED: Morphine 2 MG/ML Syringe IVPUSH ONE (18:08)
[2019-09-29] MEDS ORDERED: Sodium Chloride 0.9% 1,000 ML IV ONE ×2 (18:08→20:43)
[2019-09-29] MEDS ORDERED: Promethazine 25 MG in Sodium Chloride 0.9% 50 ML IV ONE (18:09)
[2019-09-29] MEDS ORDERED: Iopamidol 755 Mg/ML 100 ML Bottle IV ONE (19:10)
[2019-09-29] MEDS ORDERED: Ondansetron 4 MG/2 ML SDV IVPUSH ONE (20:42)
[2019-09-29] MEDS ORDERED: Ketorolac 30 MG/ML SDV IVPUSH ONE (20:42)
[2019-10-03 09:08] LABS: HBSAG SCREEN Negative (Negative); HEP A AB, IGM Negative (Negative); HEP B CORE AB, IGM Negative (Negative); HEP C VIRUS AB <0.1 s/co ratio (0.0-0.9)
== END 2019-09-29 22:05 | disposition home or self-care (01) ==
LOC: FB.ED 17:44
DX: E86.0 Dehydration (principal); R11.2 Nausea with vomiting, unspecified; R19.7 Diarrhea, unspecified; N28.1 Cyst of kidney, acquired; R07.89 Other chest pain; R79.89 Other specified abnormal findings of blood chemistry; Z88.5 Allergy status to narcotic agent; Z88.6 Allergy status to analgesic agent
CPT/HCPCS: 36415; 71275; 80053; 80074; 81025; 83735; 85025; 85379; 93005; 96361; 96374; 96375; 99285-25; A9270-GY; J1885; J2270; J2405; J2550; J7030; J7050; Q9967

== ENCOUNTER 2020-03-29 11:47 | Emergency (ER) | payer MEDICAID ==
[2020-03-29] MEDS ORDERED: Acetaminophen/oxyCODONE 325-5 MG Tab PO ONE (11:48)
[2020-03-29] MEDS ORDERED: Ketorolac 60 MG/2 ML SDV IM ONE (12:23)
--- NOTE | 2020-03-29 12:27 | EDM.PDOC ---
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 She complains of worsening LLQ pain and unidentifiable vaginal bleeding.She saw Francie yesterday,and and US was inconclusive. No GI or Urinary symptoms and no fever.Pain radiates to the sacrum.Nothing helps. left side lower abd and tailbone pain Pain Score (Numeric/FACES): 5 - Related Data Allergies Allergy/AdvReac Type Severity Reaction Status Date / Time codeine Allergy Shortness Verified 09/29/19 17:48 of Breath hydrocodone Allergy Anaphylactic Verified 09/29/19 17:48 Shock tramadol Allergy Nausea and Verified 09/29/19 17:48 Vomiting Home Meds: Home Meds Ondansetron [Zofran ODT] 4 mg PO Q6H PRN #4 tab.dis 09/29/19 [Rx] Acetaminophen/oxyCODONE [Percocet 325-5 MG] 1 each PO TID PRN #15 tab 03/29/20 [Rx] Past Medical History Cardiovascular History: Reports: Blood Clots/VTE/DVT (In right upper extremity in the past. 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 History: Endometrioma of ovary Neurological History: Reports: Headaches, Chronic Dermatologic History: Reports: Eczema - Infectious Disease History Infectious Disease History: Reports: Chicken Pox - Past Surgical History GI Surgical History: Reports: Appendectomy, Cholecystectomy, EGD Female Surgical History: Reports: Cystectomy (Ovarian) Social & Family History - Family History Family Medical History: Noncontributory - Caffeine Use Caffeine Use: Reports: Coffee, Soda - Living Situation & Occupation Living situation: Reports: 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 ED EXAM - Physical Exam Exam: See Below Exam Limited By: No Limitations General Appearance: Alert Respiratory/Chest: No Respiratory Distress Cardiovascular: Normal Peripheral Pulses, Regular Rate, Rhythm GI/Abdominal Exam: Normal Bowel Sounds, Tender (LLQ). No: Distended Course - Vital Signs Last Recorded V/S: Last Vital Signs Temp 98.0 F 03/29/20 12:00 Pulse 79 03/29/20 12:00 Resp 17 03/29/20 12:00 BP 112/75 03/29/20 12:00 Pulse Ox 100 03/29/20 12:00 - Orders/Labs/Meds Labs: Laboratory Tests 03/29/20 03/29/20 03/29/20 Range/Units 12:16 12:30 12:30 WBC 7.8 (4.5-12.0) X10-3/uL RBC 4.59 (3.23-5.20) x10(6)uL Hgb 13.7 (11.5-15.5) g/dL Hct 41.8 (30.0-51.3) % MCV 91.0 (80-96) fL MCH 29.9 (27.7-33.6) pg MCHC 32.9 (32.2-35.4) g/dL RDW 12.3 (11.5-15.5) % Plt Count 225 (125-369) X10(3)uL MPV 8.7 (7.4-10.4) fL Neut % (Auto) 68.9 (46-82) % Lymph % (Auto) 22.5 (13-37) % [place] % (Auto) 5.4 (4-12) % Eos % (Auto) 2 (1.0-5.0) % Baso % (Auto) 2 (0-2) % Neut # (Auto) 5.5 (1.6-8.3) # Lymph # (Auto) 1.7 (0.6-5.0) # [place] # (Auto) 0.4 (0.0-1.3) # Eos # (Auto) 0.1 (0.0-0.8) # Baso # (Auto) 0.1 (0.0-0.2) # HCG, Quant 400 (<5) mIU/mL Urine Color Red (YELLOW) Urine Appearance Cloudy (CLEAR) Urine pH 7.0 H (5.0-6.5) Ur Specific [place] 1.015 (1.010-1.025) Urine Protein 500 H (NEGATIVE) mg/dL Urine Glucose (UA) Normal (NORMAL) mg/dL Urine Ketones 15 H (NEGATIVE) mg/dL Urine Occult Blood Large H (NEGATIVE) Urine Nitrite Negative (NEGATIVE) Urine Bilirubin Negative (NEGATIVE) Urine Urobilinogen Normal (NEGATIVE) mg/dL Ur Leukocyte Esterase Moderate H (NEGATIVE) Urine RBC Packed H (0-5) Urine WBC (0-5) Ur Squamous Epith Cells Few H (NS,R,O) Urine Bacteria (NS) Meds: Medications Discontinued Medications Generic Name Dose Route Start Last Admin Trade Name Freq PRN Reason Stop Dose Admin Ketorolac Tromethamine 60 mg 03/29/20 12:23 03/29/20 12:29 Toradol IM 03/29/20 12:24 60 mg ONETIME ONE Administration Departure - Departure Time of Disposition: 13:24 Disposition: Home, Self-Care 01 Condition: Good Clinical Impression: Incomplete - Discharge Information Prescriptions: Acetaminophen/oxyCODONE [Percocet 325-5 MG] 1 each PO TID PRN #15 tab PRN Reason: Breakthrough Pain Referrals: Francie Lyn, SUPERVISOR CONTACT LENS [Primary Care Provider] - Forms: ED Department Discharge Sepsis Event Note (ED) - Evaluation Sepsis Screening Result: No Definite Risk - Focused Exam Vital Signs: Vital Signs Temp Pulse Resp BP Pulse Ox 03/29/20 12:00 98.0 F 79 17 112/75 100 - Problem List & Annotations (1) Miscarriage SNOMED Code(s): 41943528 Code(s): O03.9 - COMPLETE OR UNSP SPONTANEOUS WITHOUT COMPLICATION Status: Acute Current Visit: Yes (2) Abdominal pain SNOMED Code(s): 03183614 Code(s): R10.9 - UNSPECIFIED ABDOMINAL PAIN Status: Acute Current Visit: No Qualifiers: Abdominal location: generalized Qualified Code(s): R10.84 - Generalized abdominal pain - Problem List Review Problem List Initiated/Reviewed/Updated: Yes - Assessment/Plan Plan: Toradol 60 mg IM.i will DC home on Percocet. HCG level is coming down. See Francie on Tuesday
== END 2020-03-29 13:41 | disposition home or self-care (01) ==
LOC: FB.ED 11:47
DX: O03.4 Incomplete spontaneous abortion without complication (principal); Z88.5 Allergy status to narcotic agent; Z90.49 Acquired absence of other specified parts of digestive tract
CPT/HCPCS: 36415; 81001; 84702; 85025; 96372; 99284; A9270-GY; J1885

== ENCOUNTER 2021-05-10 04:16 | Emergency (ER) | payer MEDICAID ==
[2021-05-10] MEDS ORDERED: Ketorolac 30 MG/ML SDV IM ONE (04:30)
[2021-05-10] MEDS ORDERED: diphenhydrAMINE 50 MG/ML SDV IM ONE (04:30)
[2021-05-10] MEDS ORDERED: Promethazine 25 MG/ML SDV IM ONE (04:30)
--- NOTE | 2021-05-10 04:32 | EDM.PDOC ---
ED HPI GENERAL MEDICAL PROBLEM - General Chief Complaint: Headache Stated Complaint: migraine Time Seen by Provider: 05/10/21 04:31 Source of Information: Reports: Patient History Limitations: Reports: No Limitations - History of Present Illness INITIAL COMMENTS - FREE TEXT/NARRATIVE: Juanita complains of MILLER since yesterday 2 pm.It is characteristic of her Migraine headaches. Associated with nausea,light sensitively.Nothing helps. Headache Pain Score (Numeric/FACES): 10 - Related Data Allergies Allergy/AdvReac Type Severity Reaction Status Date / Time codeine Allergy Shortness Verified 09/29/19 17:48 of Breath hydrocodone Allergy Anaphylactic Verified 09/29/19 17:48 Shock tramadol Allergy Nausea and Verified 09/29/19 17:48 Vomiting Home Meds: Home Meds Ondansetron [Zofran ODT] 4 mg PO Q6H PRN #4 tab.dis 09/29/19 [Rx] Acetaminophen/oxyCODONE [Percocet 325-5 MG] 1 each PO TID PRN #15 tab 03/29/20 [Rx] Past Medical History Cardiovascular History: Reports: Blood Clots/VTE/DVT, Heart Murmur Gastrointestinal History: Reports: None NURSE TRANSITIONAL History: Reports: Other (See Below) Other NURSE TRANSITIONAL History: Endometrioma of ovary Neurological History: Reports: Headaches, Chronic, Migraines Dermatologic History: Reports: Eczema - Infectious Disease History Infectious Disease History: Reports: Chicken Pox - Past Surgical History GI Surgical History: Reports: Appendectomy, Cholecystectomy, EGD Female Surgical History: Reports: Cystectomy, Tubal Ligation Social & Family History - Family History Family Medical History: No Pertinent Family History - Tobacco Use Tobacco Use Status *Q: Never Tobacco User - Caffeine Use Caffeine Use: Reports: None - Recreational Drug Use Recreational Drug Use: No - Living Situation & Occupation Living situation: Reports: Occupation: 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[employer]; 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 - Physical Exam Exam: See Below Exam Limited By: No Limitations General Appearance: Alert, WD/WN Neuro Exam (Abbreviated): Alert, Oriented, CN II-XII Intact Psychiatric: Normal Affect, Normal Mood Skin Exam: Warm, Dry Course - Vital Signs Last Recorded V/S: Last Vital Signs Temp 98.6 F 05/10/21 04:18 Pulse 88 05/10/21 04:18 Resp 18 05/10/21 04:18 BP 129/77 05/10/21 04:18 Pulse Ox 98 05/10/21 04:18 - Orders/Labs/Meds Meds: Medications Discontinued Medications Generic Name Dose Route Start Last Admin Trade Name Chavez PRN Reason Stop Dose Admin Diphenhydramine HCl 50 mg 05/10/21 04:30 05/10/21 04:39 Diphenhydramine 50 Mg/Ml Sdv IM 05/10/21 04:31 50 mg ONETIME ONE Administration Ketorolac Tromethamine 30 mg 05/10/21 04:30 05/10/21 04:39 Ketorolac 30 Mg/Ml Sdv IM 05/10/21 04:31 30 mg ONETIME ONE Administration Promethazine HCl 25 mg 05/10/21 04:30 05/10/21 04:39 Promethazine 25 Mg/Ml Sdv IM 05/10/21 04:31 25 mg ONETIME ONE Administration Departure - Departure Time of Disposition: 04:30 Disposition: Home, Self-Care 01 Clinical Impression: Migraine - Discharge Information Instructions: Migraine Headache, [id number] Referrals: Francie Lyn FOLDING MACHINE FEEDER [Primary Care Provider] - Forms: ED Department Discharge Additional Instructions: follow up with your primary care provider as needed. Sepsis Event Note (ED) - Evaluation Sepsis Screening Result: No Definite Risk - Focused Exam Vital Signs: Vital Signs Temp Pulse Resp BP Pulse Ox 05/10/21 04:18 98.6 F 88 18 129/77 98 - Problem List & Annotations (1) Migraine SNOMED Code(s): 20155779 Code(s): G43.909 - MIGRAINE, UNSP, NOT INTRACTABLE, WITHOUT STATUS MIGRAINOSUS Status: Acute - Problem List Review Problem List Initiated/Reviewed/Updated: Yes - Assessment/Plan Plan: Benadryl 50 mg IM,Phenergan 25 mg IM and Toradol 60 mg IM.
== END 2021-05-10 04:56 | disposition home or self-care (01) ==
LOC: FB.ED 04:16
DX: G43.909 Migraine, unspecified, not intractable, without status migrainosus (principal); Z88.5 Allergy status to narcotic agent
CPT/HCPCS: 96372; 99283; J1200; J1885; J2550

== ENCOUNTER 2021-07-21 21:06 | Emergency (ER) | payer MEDICAID ==
--- NOTE | 2021-07-21 22:11 | EDM.PDOC ---
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 She reports beginning about a week ago she developed her menstrual period. She states that usually her menses is having that only lasts for about 3 days and then is gone. She is on no hormonal type therapy. She has had a bilateral tubal ligation. As at this time the bleeding began about 7 days ago and it was heavy and has continued to be heavy since then. She states that this morning she used 6 pads and 4 tampons between 6 AM and 11 AM. He states that she has had a headache which is a frontal headache is throbbing over the past 2 days and she rates the pain as a 6-7/10. He also feels that she has had low-grade fevers and she states that she is measured up to 100.1F. She has had no vomiting. There has been no diarrhea. She does not short of breath. She does feel somewhat dizzy with standing and somewhat weak. She feels very fatigued. She has had no dysuria. She has had normal bowel movements. No cough. No nasal congestion. No sore throat. There are no other associated signs or symptoms. There are no other modifying factors. Onset: Other (7 days ago) Duration: Getting Worse Location: Reports: Head Quality: Reports: Throbbing Severity: Moderate Improves with: Reports: None Worsens with: Reports: None Context: Reports: Other (As above.) Associated Symptoms: Reports: No Other Symptoms (Except as above.) Treatments WARP TIER: Reports: Other (see below) (Nothing.) abdominal Pain Score (Numeric/FACES): 4 - Related Data Allergies Allergy/AdvReac Type Severity Reaction Status Date / Time codeine Allergy Shortness Verified 07/21/21 22:43 of Breath hydrocodone Allergy Anaphylactic Verified 07/21/21 22:43 Shock tramadol Allergy Nausea and Verified 07/21/21 22:43 Vomiting Home Meds: Home Meds medroxyPROGESTERone [Provera] 20 mg PO ASDIRECTED #38 tablet 07/21/21 [Rx] Past Medical History Cardiovascular History: Reports: Blood Clots/VTE/DVT, Heart Murmur DETONATOR MAKER History: Reports: Other (See Below) Other DETONATOR MAKER History: Endometrioma of ovary Neurological History: Reports: Headaches, Chronic, Migraines Dermatologic History: Reports: Eczema - Infectious Disease History Infectious Disease History: Reports: Chicken Pox - Past Surgical History GI Surgical History: Reports: Appendectomy, Cholecystectomy, EGD Female Surgical History: Reports: Cystectomy, Tubal Ligation Social & Family History - Tobacco Use Tobacco Use Status *Q: Unknown Ever Used Tobacco (Nonsmoker.) - Caffeine Use Caffeine Use: Reports: None - Alcohol Use Alcohol Use History: No - Living Situation & Occupation Living situation: Reports: Occupation: 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[employer]– [employer]) ED ROS GENERAL - Review of Systems Review Of Systems: See Below Constitutional: Reports: Fever (Low-grade.), Malaise, Weakness, Fatigue HEENT: Denies: Sinus Problem, Throat Pain Respiratory: Denies: Shortness of Breath, Cough Cardiovascular: Denies: Chest Pain, Palpitations Endocrine: Reports: Fatigue GI/Abdominal: Reports: Decreased Appetite. Denies: Abdominal Pain : Reports: Irregular Menses. Denies: Dysuria Musculoskeletal: Denies: Neck Pain, Back Pain Skin: Denies: Bruising, Erythema Neurological: Reports: Dizziness, Headache Psychiatric: Reports: Anxiety Hematologic/Lymphatic: Denies: Easy Bleeding, Easy Bruising ED EXAM, GENERAL - Physical Exam Exam: See Below Exam Limited By: No Limitations General Appearance: Alert, WD/WN, No Apparent Distress, Other (Orthostatic vital signs were performed and there were no orthostatic changes.) Eye Exam: Bilateral Eye: EOMI, Normal Inspection (Sclera are anicteric) Ears: Normal External Exam, Hearing Grossly Normal Ear Exam: Bilateral Ear: Auricle Normal Nose: Normal Inspection, Normal Mucosa, No Blood Throat/Mouth: Normal Inspection, Normal Lips, Normal Oropharynx, Normal Voice, No Airway Compromise Head: Atraumatic, Normocephalic Neck: Normal Inspection, Supple, Non-Tender, Full Range of Motion Respiratory/Chest: No Respiratory Distress, Lungs Clear, Normal Breath Sounds, No Accessory Muscle Use Cardiovascular: Normal Peripheral Pulses, Regular Rate, Rhythm, No Edema, No Murmur Peripheral Pulses: 2+: Radial (L), Radial (R), Dorsalis Pedis (L), Dorsalis Pedis (R) GI/Abdominal: Normal Bowel Sounds, Soft, Non-Tender, No Mass Back Exam: Normal Inspection, Full Range of Motion. No: CVA Tenderness (R), CVA Tenderness (L) Extremities: Normal Inspection, Normal Range of Motion, Non-Tender, No Pedal Edema, Normal Capillary Refill Neurological: Alert, Oriented, CN II-XII Intact, Normal Cognition, No Motor/Sensory Deficits Skin Exam: Warm, Dry, Intact, Normal Color, No Rash Course - Vital Signs Last Recorded V/S: Last Vital Signs Temp 37.0 C 07/21/21 23:00 Pulse 80 07/21/21 23:00 Resp 18 07/21/21 23:00 BP 120/78 07/21/21 23:00 Pulse Ox 99 07/21/21 23:00 - Orders/Labs/Meds Labs: Laboratory Tests 07/21/21 07/21/21 07/21/21 Range/Units 22:00 22:04 22:04 WBC 7.3 (3.0-10.3) x10-3/uL RBC 4.73 (3.60-5.20) x10(6)uL Hgb 14.0 (11.4-15.5) g/dL Hct 41.4 (34.2-48.2) % MCV 87.6 (76.7-100.5) fL MCH 29.7 (23.9-33.9) pg MCHC 33.9 (31.9-34.8) g/dL RDW 12.6 (12.3-16.5) % Plt Count 224 (151-488) x10(3)uL MPV 8.8 (7.1-12.4) fL Neut % (Auto) 59.1 (30.8-76.2) % Lymph % (Auto) 30.7 (18.4-52.1) % Isabella % (Auto) 8.0 (4.4-15.7) % Eos % (Auto) 1.7 (0.6-8.1) % Baso % (Auto) 0.5 (0.2-1.5) % Neut # (Auto) 4.3 (1.5-6.3) x10-3/uL Lymph # (Auto) 2.2 (1.0-4.4) x10-3/uL Isabella # (Auto) 0.6 (0.3-1.0) x10-3/uL Eos # (Auto) 0.1 (0.0-0.8) x10-3/uL Baso # (Auto) 0.0 (0.0-0.1) x10-3/uL Sodium 144 (135-145) mmol/L Potassium 3.3 L (3.5-5.3) mmol/L Chloride 106 (100-110) mmol/L Carbon Dioxide 28 (21-32) mmol/L BUN 5 L (7-18) mg/dL Creatinine 0.8 (0.55-1.02) mg/dL Est Cr Clr Drug Dosing 85.06 mL/min Estimated GFR (MDRD) > 60 (>60) BUN/Creatinine Ratio 6.3 L (9-20) Glucose 96 (80-116) mg/dL Calcium 8.8 (8.6-10.2) mg/dL Total Bilirubin 1.0 (0.1-1.3) mg/dL AST 15 D (5-25) IU/L ALT 20 D (12-36) U/L Alkaline Phosphatase 91 (56-112) IU/L Total Protein 7.3 (6.0-8.0) g/dL Albumin 4.1 (3.5-5.2) g/dL Globulin 3.2 g/dL Albumin/Globulin Ratio 1.3 Urine HCG, Qual Negative (NEGATIVE) Meds: Medications Discontinued Medications Generic Name Dose Route Start Last Admin Trade Name Chavez PRN Reason Stop Dose Admin Medroxyprogesterone Acetate 20 mg 07/21/21 22:43 07/21/21 22:58 Medroxyprogesterone 10 Mg Tab PO 07/21/21 22:44 20 mg ONETIME ONE Administration Potassium Chloride 40 meq 07/21/21 22:46 07/21/21 22:58 Potassium Chloride 20 Meq Tab.Er PO 07/21/21 22:47 40 meq ONETIME ONE Administration - Re-Assessments/Exams Free Text/Narrative Re-Assessment/Exam: 07/21/21 22:25: The hemoglobin was 14.0. White was obtained was normal. The platelet count was 224K. the chemistries were normal except for potassium of 3.3. The LFTs are normal. A test was negative. The patient had no orthostatic changes with her blood pressure or pulse. She has remained hemodynamically stable here in the emergency department. I will call and discuss her case with the ict support engineer at [facility] in [place]. 07/21/21 22:35: I discussed the patient's case with Dr. Lester, ict support engineer at [facility] in [place], she felt that I could place the patient on Provera 20 mg 3 times a day for 3 days and then 20 mg daily for 10 days thereafter. The patient does need to make an appointment to see her primary provider or could make an appointment with gynecology at [facility] within the timeframe of the above medications as she may need further workup which would include pelvic ultrasound as an outpatient. She didn't feel the patient could be discharged at this point. Departure - Departure Time of Disposition: 22:40 Disposition: Home, Self-Care 01 Clinical Impression: Dysfunctional uterine bleeding - Discharge Information Prescriptions: medroxyPROGESTERone [Provera] 20 mg PO ASDIRECTED #38 tablet Instructions: Abnormal Uterine Bleeding, [id number], Dysfunctional Uterine Bleeding Referrals: PCP,None [Primary Care Provider] - Forms: ED Department Discharge Additional Instructions: Your hemoglobin was normal. Your other blood counts were normal as well. All of your other blood tests were normal except for a mildly low potassium. You were given potassium while you were in the emergency department. You should eat potassium-rich foods for the next few days. I discussed your case with the ict support engineer at [facility] Dr. Lester, and she recommended that I place you on a medication called Provera. It is a progesterone medication. This prescription was sent electronically to [facility] in [place]. You do need to follow-up with either your primary doctor or the ict support engineer at [facility] within the next week. Back to the emergency department for high fever, unrelenting vomiting, severe weakness difficulty breathing or any other concerning signs or symptoms. Sepsis Event Note (ED) - Evaluation Sepsis Screening Result: No Definite Risk - Focused Exam Vital Signs: Vital Signs Temp Pulse Resp BP Pulse Ox 07/21/21 23:00 37.0 C 80 18 120/78 99 07/21/21 21:10 37.8 C 80 18 144/92 H 100
[2021-07-21] MEDS ORDERED: Potassium Chloride 20 MEQ Tab.ER PO ONE (22:46)
== END 2021-07-21 23:05 | disposition home or self-care (01) ==
LOC: FB.ED 21:06
DX: N93.8 Other specified abnormal uterine and vaginal bleeding (principal); Z88.5 Allergy status to narcotic agent; Z86.718 Personal history of other venous thrombosis and embolism
CPT/HCPCS: 36415; 80053; 81025; 85025; 99284; A9270-GY

== ENCOUNTER 2023-01-10 20:55 | Emergency (ER) | payer MEDICAID ==
[2023-01-10] MEDS ORDERED: Lidocaine 2% 20 ML MDV INFILT ONE (20:56)
[2023-01-10] MEDS ORDERED: Acetaminophen/oxyCODONE 325-5 MG Tab PO ONE (20:56)
[2023-01-10] MEDS ORDERED: Lidocaine 2% Viscous Solution 15 ML UD PO ONE (21:18)
== END 2023-01-10 22:30 | disposition home or self-care (01) ==
LOC: FB.ED 20:55
DX: K08.89 Other specified disorders of teeth and supporting structures (principal); Z88.5 Allergy status to narcotic agent; Z90.49 Acquired absence of other specified parts of digestive tract
CPT/HCPCS: 64400; 99282; A9270

== ENCOUNTER 2023-09-26 02:17 | Emergency (ER) | payer SELFPAY | END 2023-09-26 04:35 | disposition home or self-care (01) | LOC: FB.ED 02:17 | DX: M79.672 Pain in left foot (principal); J45.909 Unspecified asthma, uncomplicated; Z91.011 Allergy to milk products; Z88.5 Allergy status to narcotic agent | CPT/HCPCS: 73630-LT; 99283 ==

== ENCOUNTER 2023-10-30 20:26 | Emergency (ER) | payer SELFPAY ==
[2023-10-30] MEDS ORDERED: Ondansetron 4 MG Tab.DIS PO ONE ×2 (20:27→21:08)
[2023-10-30 21:20] LABS: INFLUENZA A NAA NEGATIVE (NEGATIVE); INFLUENZA B NAA NEGATIVE (NEGATIVE); RESPIRATORY SYNCYTIAL VIR NAA NEGATIVE (NEGATIVE)
[2023-10-30 21:24] LABS: CORONAVIRUS COVID-19 NAA NEGATIVE (NEGATIVE)
[2023-10-30 21:49] LABS: BLOOD UREA NITROGEN,BUN 7 mg/dL (7-18); CALCIUM 9.1 mg/dL (8.6-10.2); CARBON DIOXIDE,CO2 26 mmol/L (21-32); CHLORIDE,CL 103 mmol/L (100-110); CREATININE 0.7 mg/dL (0.55-1.02); EST CRCL DRUG DOSING (CG) 94.56 mL/min; ESTIMATED GFR 117 mL/min (>60); GLUCOSE RANDOM 95 mg/dL (80-116); POTASSIUM,K 3.3 mmol/L (3.5-5.3); SODIUM,NA 140 mmol/L (135-145)
[2023-10-30 21:52] LABS: BASOPHILS PERCENT AUTO 0.3 % (0.2-1.5); EOSINOPHILS ABSOLUTE AUTO 0.1 x10-3/uL (0.0-0.8); EOSINOPHILS PERCENT AUTO 1.2 % (0.6-8.1); HEMATOCRIT 45.8 % (34.2-48.2); HEMOGLOBIN 15.8 g/dL (11.4-15.5); LYMPHOCYTES ABSOLUTE AUTO 1.4 x10-3/uL (1.0-4.4); LYMPHOCYTES PERCENT AUTO 14.3 % (18.4-52.1); MEAN CORPUSCULAR HEMOGLOBIN 30.2 pg (23.9-33.9); MEAN CORPUSCULAR HGB CONC 34.6 g/dL (31.9-34.8); MEAN CORPUSCULAR VOLUME 87.3 fL (76.7-100.5); MONOCYTES ABSOLUTE AUTO 0.6 x10-3/uL (0.3-1.0); MONOCYTES PERCENT AUTO 5.9 % (4.4-15.7); NEUTROPHILS ABSOLUTE AUTO 7.9 x10-3/uL (1.5-6.3); NEUTROPHILS PERCENT AUTO 78.3 % (30.8-76.2); PLATELET COUNT,PLT 212 x10(3)uL (151-488); RED BLOOD CELL COUNT 5.24 x10(6)uL (3.60-5.20); RED CELL DISTRIBUTION WIDTH 13.1 % (12.3-16.5); WHITE BLOOD CELL COUNT,WBC 10.1 x10-3/uL (3.0-10.3)
[2023-10-30 21:54] LABS: A/G RATIO 1.2; ALANINE AMINOTRANSFERASE,ALT 24 U/L (12-36); ALBUMIN 4.3 g/dL (3.5-5.2); ALKALINE PHOSPHATASE 86 IU/L (56-112); ASPARTATE AMNIOTRANSFERASE,AST 15 IU/L (5-25); BILIRUBIN TOTAL 0.9 mg/dL (0.1-1.3)
[2023-10-30 21:59] LABS: BILIRUBIN,URINE SMALL (NEGATIVE); GLUCOSE,URINE NORMAL (NORMAL); KETONES,URINE 15 mg/dL (NEGATIVE); LEUKOCYTE ESTERASE,URINE SMALL (NEGATIVE); NITRITE,URINE NEGATIVE (NEGATIVE); OCCULT BLOOD,URINE LARGE (NEGATIVE); PROTEIN,URINE TRACE mg/dL (NEGATIVE); UROBILINOGEN,URINE NORMAL (NEGATIVE)
[2023-10-30 22:01] LABS: APPEARANCE,URINE CLEAR (CLEAR); BACTERIA,URINE FEW (NS); COLOR,URINE YELLOW (YELLOW); RBC,URINE 50-75 (0-5); SQUAMOUS EPITHELIAL CELLS,UR FEW (NS,R,O); WBC,URINE 0-5 (0-5)
[2023-10-30 22:06] LABS: TSH ULTRASENSITIVE 1.68 IU/mL (0.36-3.74)
[2023-10-30 22:25] LABS: C-REACTIVE PROTEIN < 0.50 mg/dL (<0.50)
== END 2023-10-30 23:47 | disposition home or self-care (01) ==
LOC: FB.ED 20:26
DX: R11.2 Nausea with vomiting, unspecified (principal); T43.215A Adverse effect of selective serotonin and norepinephrine reuptake inhibitors, initial encounter; E86.0 Dehydration; E87.6 Hypokalemia; J45.909 Unspecified asthma, uncomplicated; Z90.49 Acquired absence of other specified parts of digestive tract; Z79.899 Other long term (current) drug therapy; Z88.5 Allergy status to narcotic agent; Z91.011 Allergy to milk products
CPT/HCPCS: 0241U; 36415; 80053; 81001; 84443; 85025; 85379; 86140; 93010; 99283; 99284; Q0162

== ENCOUNTER 2024-04-14 20:38 | Emergency (ER) | payer SELFPAY ==
[2024-04-14] MEDS: Sodium Chloride 0.9% 1,000 ML IV SCH (20:55)
[2024-04-14] MEDS: Ondansetron 4 MG/2 ML SDV IVPUSH ONE (20:55)
[2024-04-14] MEDS: Ketorolac 30 MG/ML SDV IVPUSH ONE (20:57)
[2024-04-14 21:05] LABS: BASOPHILS PERCENT AUTO 0.1 % (0.2-1.5); EOSINOPHILS PERCENT AUTO 0.3 % (0.6-8.1); HEMATOCRIT 43.9 % (34.2-48.2); HEMOGLOBIN 15.2 g/dL (11.4-15.5); LYMPHOCYTES ABSOLUTE AUTO 1.7 x10-3/uL (1.0-4.4); LYMPHOCYTES PERCENT AUTO 13.2 % (18.4-52.1); MEAN CORPUSCULAR HEMOGLOBIN 30.3 pg (23.9-33.9); MEAN CORPUSCULAR HGB CONC 34.6 g/dL (31.9-34.8); MEAN CORPUSCULAR VOLUME 87.6 fL (76.7-100.5); MEAN PLATELET VOLUME 9.4 fL (7.1-12.4); MONOCYTES ABSOLUTE AUTO 1.1 x10-3/uL (0.3-1.0); NEUTROPHILS ABSOLUTE AUTO 10.3 x10-3/uL (1.5-6.3); NEUTROPHILS PERCENT AUTO 78.4 % (30.8-76.2); PLATELET COUNT,PLT 266 x10(3)uL (151-488); RED BLOOD CELL COUNT 5.01 x10(6)uL (3.60-5.20); RED CELL DISTRIBUTION WIDTH 13.1 % (12.3-16.5); WHITE BLOOD CELL COUNT,WBC 13.1 x10-3/uL (3.0-10.3)
[2024-04-14 21:13] LABS: BLOOD UREA NITROGEN,BUN 8 mg/dL (7-18); BUN/CREATININE RATIO 6.7 (9-20); CALCIUM 9.5 mg/dL (8.6-10.2); CARBON DIOXIDE,CO2 24 mmol/L (21-32); CHLORIDE,CL 99 mmol/L (100-110); CREATININE 1.2 mg/dL (0.55-1.02); ESTIMATED GFR 61 mL/min (>60); GLUCOSE RANDOM 99 mg/dL (80-116); POTASSIUM,K 3.6 mmol/L (3.5-5.3); SODIUM,NA 137 mmol/L (135-145)
[2024-04-14 21:32] LABS: CREATINE KINASE,CK 807 IU/L (60-160)
[2024-04-14] MEDS: Sodium Chloride 0.9% 1,000 ML IV ONE (21:40)
== END 2024-04-14 22:53 | disposition home or self-care (01) ==
LOC: FB.ED 20:38
DX: T67.5XXA Heat exhaustion, unspecified, initial encounter (principal); R00.0 Tachycardia, unspecified; M62.82 Rhabdomyolysis; Z90.49 Acquired absence of other specified parts of digestive tract; Z79.899 Other long term (current) drug therapy; Z88.5 Allergy status to narcotic agent; Z91.011 Allergy to milk products; Z91.018 Allergy to other foods
CPT/HCPCS: 80048; 82550; 85025; 93005; 93010; 96361; 96374; 96375; 99284; 99285; J1885; J2405; J7030; 36415

== ENCOUNTER 2024-04-28 18:55 | Emergency (ER) | payer SELFPAY ==
[2024-04-28] MEDS ORDERED: Amoxicillin/Clavulanate K 875-125 MG Tab PO ONE (18:56)
[2024-04-28 19:37] LABS: EOSINOPHILS ABSOLUTE AUTO 0.2 x10-3/uL (0.0-0.8); HEMATOCRIT 39.6 % (34.2-48.2); HEMOGLOBIN 13.8 g/dL (11.4-15.5); LYMPHOCYTES ABSOLUTE AUTO 2.2 x10-3/uL (1.0-4.4); MEAN CORPUSCULAR HGB CONC 34.8 g/dL (31.9-34.8); MEAN PLATELET VOLUME 9.6 fL (7.1-12.4); RED CELL DISTRIBUTION WIDTH 13.2 % (12.3-16.5)
[2024-04-28 19:39] LABS: BASOPHILS PERCENT AUTO 0.4 % (0.2-1.5); EOSINOPHILS PERCENT AUTO 2.8 % (0.6-8.1); LYMPHOCYTES PERCENT AUTO 28.4 % (18.4-52.1); MEAN CORPUSCULAR HEMOGLOBIN 30.5 pg (23.9-33.9); MEAN CORPUSCULAR VOLUME 87.6 fL (76.7-100.5); MONOCYTES ABSOLUTE AUTO 0.5 x10-3/uL (0.3-1.0); NEUTROPHILS ABSOLUTE AUTO 4.7 x10-3/uL (1.5-6.3); NEUTROPHILS PERCENT AUTO 61.4 % (30.8-76.2); PLATELET COUNT,PLT 209 x10(3)uL (151-488); RED BLOOD CELL COUNT 4.52 x10(6)uL (3.60-5.20); WHITE BLOOD CELL COUNT,WBC 7.7 x10-3/uL (3.0-10.3)
[2024-04-28 19:44] LABS: A/G RATIO 1.2; ALANINE AMINOTRANSFERASE,ALT 19 U/L (12-36); ALBUMIN 3.8 g/dL (3.5-5.2); ALKALINE PHOSPHATASE 70 IU/L (56-112); ASPARTATE AMNIOTRANSFERASE,AST 14 IU/L (5-25); BILIRUBIN TOTAL 0.8 mg/dL (0.1-1.3); BLOOD UREA NITROGEN,BUN 9 mg/dL (7-18); CALCIUM 8.4 mg/dL (8.6-10.2); CARBON DIOXIDE,CO2 23 mmol/L (21-32); CHLORIDE,CL 106 mmol/L (100-110); ESTIMATED GFR 76 mL/min (>60); GLUCOSE RANDOM 118 mg/dL (80-116); PROTEIN TOTAL,TP 6.9 g/dL (6.0-8.0); SODIUM,NA 137 mmol/L (135-145)
[2024-04-28 19:46] LABS: POTASSIUM,K 2.8 mmol/L (3.5-5.3)
[2024-04-28] MEDS: Potassium Chloride 20 MEQ Tab.ER PO ONE (19:58)
== END 2024-04-28 20:44 | disposition home or self-care (01) ==
LOC: FB.ED 18:55
DX: J32.9 Chronic sinusitis, unspecified (principal); H66.92 Otitis media, unspecified, left ear; J45.909 Unspecified asthma, uncomplicated; Z90.49 Acquired absence of other specified parts of digestive tract; Z79.899 Other long term (current) drug therapy; Z88.8 Allergy status to other drugs, medicaments and biological substances; Z91.011 Allergy to milk products; Z88.5 Allergy status to narcotic agent
CPT/HCPCS: 36415; 80053; 85025; 86140; 87635; 99284; A9270; U0002

== ENCOUNTER 2024-12-21 20:26 | Emergency (ER) | payer MEDICAID ==
[2024-12-21] MEDS: SUMAtriptan 6 MG/0.5 ML SDV SUBCUT ONE (21:07)
[2024-12-21] MEDS: Ketorolac 30 MG/ML SDV IM STA (21:07)
== END 2024-12-21 22:05 | disposition home or self-care (01) ==
LOC: FB.ED 20:26
DX: G43.909 Migraine, unspecified, not intractable, without status migrainosus (principal); J45.909 Unspecified asthma, uncomplicated; Z88.5 Allergy status to narcotic agent; Z91.011 Allergy to milk products; Z88.8 Allergy status to other drugs, medicaments and biological substances; Z91.048 Other nonmedicinal substance allergy status; Z79.899 Other long term (current) drug therapy; Z90.49 Acquired absence of other specified parts of digestive tract
CPT/HCPCS: 96372; 99283; J1885; J3030

== ENCOUNTER 2025-03-22 23:16 | Emergency (ER) | payer SELFPAY | END 2025-03-22 23:55 | LOC: FB.ED 23:16 | DX: G54.0 Brachial plexus disorders (principal); M79.602 Pain in left arm; J45.909 Unspecified asthma, uncomplicated; Z91.011 Allergy to milk products; Z88.5 Allergy status to narcotic agent; Z79.01 Long term (current) use of anticoagulants; Z79.51 Long term (current) use of inhaled steroids; Z79.899 Other long term (current) drug therapy; Z86.718 Personal history of other venous thrombosis and embolism | CPT/HCPCS: 99284 ==